=== PATIENT | male | born 1935 | race Caucasian/White ===

== ENCOUNTER 2016-12-25 14:29 | Emergency (ER) | payer OTHER ==
[~2016-12-25] VITALS: Ht 167.6 cm; Wt 80.7 kg
[2016-12-25 14:50] VITALS: BP_SYST 140
--- NOTE | 2016-12-25 14:50 | NUR ---
Placed in room 6 . Placed on social work nurse, blood pressure machine and pulse oximeter. To gown for exam. Side rails up. Report given to Mayuri PACE.
[2016-12-25] MEDS ORDERED: NS 1000 ML BAG IV ONE (15:00)
--- NOTE | 2016-12-25 15:00 | NUR ---
Dr Heath at bedside to evaluate patient.
--- NOTE | 2016-12-25 15:15 | NUR ---
Patient to ED via EMT's with c/o generalized weakness x 1 day while at the store. Patient noted to be hypotensive on arrival to ED. Patient denies CP/SOB, patient was seen and evaluated by Dr Heath-orders received and implemented. IV started, bloods drawn and sent to lab. Patient remains on hospital monitor which shows sinus rhythm without ectopy.
--- NOTE | 2016-12-25 15:30 | NUR ---
Famiily at bedside-update/emotional support given, questions answered. Dr Heath speaking with family and patient regarding plan of care-questions answered by .
[2016-12-25 15:44] LABS: BASOPHILS # (AUTO) 0.1 K/uL (0.0-0.2); BASOPHILS % (AUTO) 0.7 % (0.0-2.0); EOSINOPHILS # (AUTO) 0.1 K/uL (0.0-0.4); EOSINOPHILS % (AUTO) 0.4 % (0.0-4.0); HEMOGLOBIN 15.8 g/dL (14.0-18.0); LYMPHOCYTES # (AUTO) 0.7 K/uL (1.0-5.5); LYMPHOCYTES % (AUTO) 4.5 % (20.5-51.5); MEAN CORPUSCULAR HEMOGLOBIN 33 pg (27-31); MEAN CORPUSCULAR HGB CONC 33 % (32-36); MEAN CORPUSCULAR VOLUME 100 fL (79.0-98.0); MONOCYTES # (AUTO) 0.9 K/uL (0.0-1.0); MONOCYTES % (AUTO) 6.2 % (1.7-9.3); NEUTROPHILS # (AUTO) 13.1 K/uL (1.8-7.7); NEUTROPHILS % (AUTO) 88.2 % (40.0-70.0); PLATELET COUNT (AUTO) 201 K/uL (130-430); RED BLOOD CELL COUNT(AUTO) 4.82 MIL/uL (4.2-6.2); RED CELL DISTRIBUTION WIDTH 13.3 % (9.0-15.0); WHITE BLOOD COUNT (AUTO) 14.9 K/uL (4.8-10.8)
--- NOTE | 2016-12-25 15:50 | NUR ---
IV fluids infusing without difficulty-no redness or swelling noted at site. Awaiting lab results, will continue to observe and assess.
[2016-12-25 16:02] LABS: PROTHROMBIN TIME 9.9 SECS (9.5-12.5)
[2016-12-25 16:10] LABS: ANION GAP 13 (5-15); CALCIUM 10.1 mg/dL (8.4-11.0); CHLORIDE 92 mmol/L (98-107); CREATININE 3.24 mg/dL (0.55-1.30); GLUCOSE 163 mg/dL (70-99); POTASSIUM 3.1 mmol/L (3.5-5.1); SODIUM SERUM 132 mmol/L (136-145); UREA NITROGEN, BLOOD 45 mg/dL (8-21)
[2016-12-25 16:14] LABS: ALANINE AMINOTRANSFERASE 117 U/L (12-78); ALBUMIN 3.4 g/dL (3.4-4.8); ASPARTATE AMINOTRANSFERASE 153 U/L (10-37); TOTAL BILIRUBIN 1.2 mg/dL (0.0-1.0)
--- NOTE | 2016-12-25 16:15 | NUR ---
Family contact-Bola [phone]
--- NOTE | 2016-12-25 17:09 | NUR ---
Call placed to family contact Bola, he should be here in about 30-45 minutes. Patient to be discharged to waiting room per charge hand
--- NOTE | 2016-12-25 17:20 | NUR ---
Patient given written and verbal discharge instructions and verbalizes understanding. ER MD discussed with patient the results and treatment provided. Patient in stable condition. ID arm band removed. IV catheter removed intact and dressing applied, no active bleeding. No RX given. Patient educated on pain management and to follow up with PMD. Pain Scale 0. Opportunity for questions provided and answered. Patient placed in waiting room to wait for ride by gas charger. Patient in nad.
[2016-12-25 17:21] VITALS: BP_SYST 127
== END 2016-12-25 17:20 | disposition home or self-care (01) ==
LOC: SED 14:29
DX: E87.1 Hypo-osmolality and hyponatremia (principal); E11.9 Type 2 diabetes mellitus without complications; I10 Essential (primary) hypertension; Z95.1 Presence of aortocoronary bypass graft
CPT/HCPCS: 36415; 71010; 80053; 83605; 83880; 84484; 85025; 85610; 85730; 87040; 93005; 96360; 96361; 99285; J7030

== ENCOUNTER 2020-03-30 12:53 | Inpatient (IN) | payer OTHER, MEDICAID, SELFPAY ==
[~2020-03-30] VITALS: Ht 170.2 cm; Wt 90.7 kg
[2020-03-30 12:55] VITALS: BP_SYST 154
[2020-03-30] MEDS ORDERED: ALBUTEROL MDI INHALATION 8 GM INH INH ONE (13:45)
[2020-03-30 14:20] LABS: BASOPHILS % (AUTO) 0.4 % (0.0-2.0); HEMATOCRIT 38.4 % (36-54); LYMPHOCYTES # (AUTO) 0.5 K/uL (1.0-5.5); LYMPHOCYTES % (AUTO) 5.5 % (20.5-51.5); MEAN CORPUSCULAR HEMOGLOBIN 31 pg (27-31); MEAN CORPUSCULAR HGB CONC 34 % (32-36); MEAN CORPUSCULAR VOLUME 91 fL (79.0-98.0); MONOCYTES # (AUTO) 1.2 K/uL (0.0-1.0); NEUTROPHILS % (AUTO) 82.1 % (40.0-70.0); PLATELET COUNT (AUTO) 301 K/uL (130-430); RED BLOOD CELL COUNT(AUTO) 4.23 MIL/uL (4.2-6.2); RED CELL DISTRIBUTION WIDTH 15.1 % (9.0-15.0); WHITE BLOOD COUNT (AUTO) 9.7 K/uL (4.8-10.8)
[2020-03-30 14:21] LABS: PROTHROMBIN TIME 10.7 SECS (9.5-12.5)
[2020-03-30] MEDS ORDERED: DEXAMETHASONE SOD PHOSPHATE 10 MG/ML VIAL IVP ONE (16:15)
[2020-03-30] MEDS ORDERED: cefTRIAXone 1 GM IVPB PREMIX 50 ML IV ONE (16:15)
[2020-03-30] MEDS ORDERED: ASPIRIN 81 MG TAB.CHEW PO ONE (16:15)
[2020-03-30] MEDS ORDERED: ASPIRIN 81 MG TAB.CHEW ONE (17:37)
[2020-03-30 17:59] LABS: ALANINE AMINOTRANSFERASE 41 U/L (12-78); ASPARTATE AMINOTRANSFERASE 74 U/L (10-37); C-REACTIVE PROTEIN QUANT 11.5 mg/dL (0-0.5)
[2020-03-30 18:00] LABS: ANION GAP 11 (5-15); CHLORIDE 102 mmol/L (98-107); POTASSIUM 3.7 mmol/L (3.5-5.1); SODIUM SERUM 138 mmol/L (136-145)
[2020-03-30 18:01] LABS: ALBUMIN 2.3 g/dL (3.4-4.8); CALCIUM 8.2 mg/dL (8.4-11.0); CREATININE 1.53 mg/dL (0.55-1.30); GLUCOSE 229 mg/dL (70-99); LACTATE DEHYDROGENASE 291 U/L (85-227); TOTAL BILIRUBIN 0.3 mg/dL (0.0-1.0); UREA NITROGEN, BLOOD 36 mg/dL (8-21)
[2020-03-30] MEDS ORDERED: GUAI-723 PO (18:56)
[2020-03-30] MEDS ORDERED: BUDE6HFA INH (18:56)
[2020-03-30] MEDS ORDERED: SENN8.6T19 PO (18:56)
[2020-03-30] MEDS ORDERED: LEVO112T2 PO (18:56)
[2020-03-30] MEDS ORDERED: HYDR-4038 PO (18:56)
[2020-03-30] MEDS ORDERED: LACT10SO6 PO (18:56)
[2020-03-30] MEDS ORDERED: BISA-79 PO (18:56)
[2020-03-30] MEDS ORDERED: OSCD500 PO (18:56)
[2020-03-30] MEDS ORDERED: TAMS0.4C96 PO (18:56)
[2020-03-30] MEDS ORDERED: NOR10 PO (18:56)
[2020-03-30] MEDS ORDERED: GLUXR500 PO (18:56)
[2020-03-30] MEDS ORDERED: CLOP75TA32 PO (18:56)
[2020-03-30] MEDS ORDERED: METO25TA3 PO (18:56)
[2020-03-30] MEDS ORDERED: MELA1TAB29 PO (18:56)
[2020-03-30] MEDS ORDERED: ALBU8.5H8 INH (18:56)
[2020-03-30] MEDS ORDERED: LIP40 PO (18:56)
[2020-03-30] MEDS ORDERED: SSNOVOLOG SUBCUT (18:56)
[2020-03-30] MEDS ORDERED: ACET-2634 PO (18:56)
[2020-03-30] MEDS ORDERED: DOCU-144 PO (18:56)
[2020-03-30] MEDS ORDERED: LOSA100T3 PO (18:56)
[2020-03-30] MEDS ORDERED: GLYC30DR4 EACH EYE (18:56)
[2020-03-30] MEDS ORDERED: ASA81 PO (18:56)
[2020-03-30] MEDS ORDERED: MOM PO (18:56)
[2020-03-30] MEDS ORDERED: ACET325T PO (18:56)
[2020-03-30] MEDS ORDERED: AMI200 PO (18:56)
[2020-03-30] MEDS ORDERED: VITD2000 PO (18:56)
[2020-03-30] MEDS ORDERED: [UNRECOGNIZED DRUG - OTHER] PO (18:56)
[2020-03-30] MEDS ORDERED: THIA100T70 PO (18:56)
[2020-03-30] MEDS ORDERED: PRO40 PO (18:56)
[2020-03-30] MEDS ORDERED: DOXY100T2 PO (18:56)
[2020-03-30] MEDS ORDERED: POLY17PO4 PO (18:56)
[2020-03-30] MEDS ORDERED: MAGN400T10 PO ×2 (18:56)
[2020-03-30] MEDS ORDERED: L.RH1CAP PO (18:56)
[2020-03-30] MEDS ORDERED: FOLI-43 PO (18:56)
[2020-03-30] MEDS ORDERED: FINA5TAB3 PO (18:56)
[2020-03-30] MEDS ORDERED: DIPHENHYDRAMINE INJ 50 MG/ML VIAL IVP ONE (19:30)
[2020-03-30] MEDS ORDERED: HALOPERIDOL LACTATE 5 MG/ML VIAL IVP ONE (19:30)
[2020-03-30] MEDS: D5/0.45 NS 1,000 ML IV SCH (20:40)
[2020-03-30] MEDS ORDERED: MORPHINE 4 MG/ML INJ. SYRINGE IVP PRN (21:15)
[2020-03-30] MEDS ORDERED: ONDANSETRON HCL 4 MG/2 ML VIAL IVP PRN (21:15)
[2020-03-30] MEDS ORDERED: AZITHROMYCIN 500 MG in NS 250 ML IV SCH (21:15)
[2020-03-30] MEDS ORDERED: NALOXONE HCL 0.4 MG/ML AMP (NARCAN) IVP PRN (21:15)
[2020-03-30] MEDS ORDERED: DEXAMETHASONE SOD PHOSPHATE 10 MG/ML VIAL IVP SCH (21:15)
[2020-03-30] MEDS ORDERED: MORPHINE 2 MG/ML INJ. SYRINGE IVP PRN (21:15)
[2020-03-30] MEDS ORDERED: LORazepam 2 MG/ML VIAL IVP PRN (21:15)
[2020-03-30] MEDS ORDERED: INSULIN REGULAR, HUMAN 100 UNITS/ML, 10 ML VIAL (humuLIN R) SUBCUT PRN (21:15)
[2020-03-30] MEDS ORDERED: AZITHROMYCIN 500 MG/VIAL (ZITHROMAX) IV ONE (21:33)
[2020-03-30 22:55] VITALS: BP_SYST 134
[2020-03-30] MEDS: IPRATROPIUM BROM 0.5 MG/2.5 ML VIAL.NEB (ATROVENT) INH SCH (23:00)
[2020-03-30] MEDS: ALBUTEROL SULFATE 0.083% 2.5 MG/3 ML VIAL.NEB INH SCH (23:00)
[2020-03-30] MEDS ORDERED: DEXAMETHASONE SOD PHOSPHATE 4 MG/ML VIAL ONE (23:43)
[2020-03-30] MEDS ORDERED: DEXAMETHASONE SOD PHOSPHATE 4 MG/ML VIAL IVP ONE (23:45)
[2020-03-30] MEDS ORDERED: INSULIN REGULAR, HUMAN 10 UNITS/0.1 ML INJ ONE (23:59)
[2020-03-31] MEDS: ALBUTEROL SULFATE 0.083% 2.5 MG/3 ML VIAL.NEB INH SCH ×3 (03:00→11:41)
[2020-03-31] MEDS: IPRATROPIUM BROM 0.5 MG/2.5 ML VIAL.NEB (ATROVENT) INH SCH ×3 (03:00→11:42)
[2020-03-31] MEDS: D5/0.45 NS 1,000 ML IV SCH (05:11)
[2020-03-31 05:49] LABS: ALANINE AMINOTRANSFERASE 36 U/L (12-78); ALBUMIN 1.9 g/dL (3.4-4.8); ANION GAP 8 (5-15); ASPARTATE AMINOTRANSFERASE 73 U/L (10-37); CALCIUM 7.8 mg/dL (8.4-11.0); CHLORIDE 102 mmol/L (98-107); CREATININE 1.18 mg/dL (0.55-1.30); GLUCOSE 142 mg/dL (70-99); PHOSPHORUS 3.6 mg/dL (2.7-4.5); POTASSIUM 3.8 mmol/L (3.5-5.1); SODIUM SERUM 136 mmol/L (136-145); TOTAL BILIRUBIN 0.1 mg/dL (0.0-1.0); UREA NITROGEN, BLOOD 28 mg/dL (8-21)
[2020-03-31 06:46] LABS: C-REACTIVE PROTEIN QUANT 8.6 mg/dL (0-0.5)
[2020-03-31 06:49] LABS: BASOPHILS % (AUTO) 0.1 % (0.0-2.0); HEMATOCRIT 38.4 % (36-54); HEMOGLOBIN 12.9 g/dL (14.0-18.0); LYMPHOCYTES # (AUTO) 0.3 K/uL (1.0-5.5); LYMPHOCYTES % (AUTO) 4.5 % (20.5-51.5); MEAN CORPUSCULAR HEMOGLOBIN 30 pg (27-31); MEAN CORPUSCULAR HGB CONC 34 % (32-36); MEAN CORPUSCULAR VOLUME 91 fL (79.0-98.0); MONOCYTES # (AUTO) 0.4 K/uL (0.0-1.0); MONOCYTES % (AUTO) 6.3 % (1.7-9.3); NEUTROPHILS # (AUTO) 5.8 K/uL (1.8-7.7); NEUTROPHILS % (AUTO) 89.1 % (40.0-70.0); PLATELET COUNT (AUTO) 279 K/uL (130-430); RED BLOOD CELL COUNT(AUTO) 4.24 MIL/uL (4.2-6.2); RED CELL DISTRIBUTION WIDTH 15.4 % (9.0-15.0)
[2020-03-31 07:27] LABS: WHITE BLOOD COUNT (AUTO) 6.5 K/uL (4.8-10.8)
[2020-03-31] MEDS ORDERED: LEVOTHYROXINE SODIUM 0.112 MG TABLET PO ONE (08:00)
[2020-03-31 08:30] LABS: ERYTHROCYTE SEDIMENTATION RATE 20 MM/HR (0-15)
[2020-03-31] MEDS ORDERED: hydrALAZINE HCL 25 MG TABLET PO SCH (09:00)
[2020-03-31] MEDS ORDERED: METOPROLOL SUCCINATE 25 MG TAB.SR.24H (TOPROL XL) PO SCH (09:00)
[2020-03-31] MEDS ORDERED: LOSARTAN POTASSIUM 50 MG TABLET (COZAAR) PO SCH (09:00)
[2020-03-31] MEDS ORDERED: HEPARIN SODIUM,PORCINE 5,000 UNITS/ML VIAL SUBCUT SCH (09:00)
[2020-03-31] MEDS ORDERED: PANTOPRAZOLE SODIUM 40 MG TAB PO SCH (09:00)
[2020-03-31] MEDS ORDERED: CLOPIDOGREL BISULFATE 75 MG TABLET PO SCH (09:00)
[2020-03-31 11:50] VITALS: BP_SYST 140
[2020-03-31 12:25] VITALS: BP_SYST 140
[2020-03-31 14:21] VITALS: BP_SYST 0
[2020-03-31] MEDS ORDERED: ALBUTEROL MDI INHALATION 8 GM INH INH SCH (15:00)
[2020-03-31] MEDS ORDERED: cefTRIAXone 1 GM IVPB PREMIX 50 ML IV SCH (18:00)
[2020-03-31] MEDS ORDERED: ATORVASTATIN 20 MG TABLET PO SCH (21:00)
[2020-04-01] MEDS ORDERED: LEVOTHYROXINE SODIUM 0.112 MG TABLET PO SCH (07:00)
== END 2020-03-31 14:21 | disposition expired | DRG 871 ==
LOC: SED 12:53 → SIC 19:30 → STU 03-31 10:07
PROVIDERS: ADMIT Internal Medicine Hospice and Palliative Medicine; ATTEND Internal Medicine Hospice and Palliative Medicine
PROC: 5A09357 Assistance with Respiratory Ventilation, Less than 24 Consecutive Hours, Continuous Positive Airway Pressure (ICD-10-PCS; principal; 2020-03-30)
DX: A41.9 Sepsis, unspecified organism (principal); U07.1 COVID-19; J12.82 Pneumonia due to coronavirus disease 2019; J96.01 Acute respiratory failure with hypoxia; E43 Unspecified severe protein-calorie malnutrition; G93.41 Metabolic encephalopathy; N17.9 Acute kidney failure, unspecified; K74.60 Unspecified cirrhosis of liver; E03.9 Hypothyroidism, unspecified; E83.51 Hypocalcemia; E11.65 Type 2 diabetes mellitus with hyperglycemia; R74.01 Elevation of levels of liver transaminase levels; I25.10 Atherosclerotic heart disease of native coronary artery without angina pectoris; E88.09 Other disorders of plasma-protein metabolism, not elsewhere classified; I11.0 Hypertensive heart disease with heart failure; I50.9 Heart failure, unspecified; Z66 Do not resuscitate; E11.319 Type 2 diabetes mellitus with unspecified diabetic retinopathy without macular edema; Z86.73 Personal history of transient ischemic attack (TIA), and cerebral infarction without residual deficits; Z95.1 Presence of aortocoronary bypass graft; Z87.01 Personal history of pneumonia (recurrent); Z79.4 Long term (current) use of insulin; Z79.82 Long term (current) use of aspirin; Z79.1 Long term (current) use of non-steroidal anti-inflammatories (NSAID); Z79.899 Other long term (current) drug therapy; Z68.31 Body mass index [BMI] 31.0-31.9, adult; Z87.891 Personal history of nicotine dependence
CPT/HCPCS: 36415; 36600; 71045; 80053; 82550-TC; 82728; 82803-TC; 82962; 83605; 83615-TC; 83735-TC; 83880; 84100-TC; 84484; 85025; 85379; 85384-TC; 85610-TC; 85651-TC; 85730-TC; 86140; 86886; 86900; 86901; 87040-TC; 87081; 93005; 93306; 93970; 94640; 94660; 96365; 96375; 99291; J0456; J0696; J1100; J1644; J1815; J7050; J7613